=== PATIENT | female | born 1950 | race Caucasian/White ===

== ENCOUNTER 2019-07-21 14:52 | Emergency (ER) | payer OTHER ==
[~2019-07-21] VITALS: Ht 152.4 cm; Wt 56.7 kg
== END 2019-07-21 18:11 | disposition home or self-care (01) ==
LOC: ER 14:52
DX: S81.822A Laceration with foreign body, left lower leg, initial encounter (principal); W18.09XA Striking against other object with subsequent fall, initial encounter; Y93.89 Activity, other specified; Y92.832 Beach as the place of occurrence of the external cause; Y99.8 Other external cause status

== ENCOUNTER 2019-07-29 08:57 | Emergency (ER) | payer OTHER ==
[~2019-07-29] VITALS: Ht 152.4 cm; Wt 56.7 kg
== END 2019-07-29 10:40 | disposition home or self-care (01) ==
LOC: ER 08:57
DX: T81.89XA Other complications of procedures, not elsewhere classified, initial encounter (principal)

== ENCOUNTER 2019-08-04 09:04 | Emergency (ER) | payer OTHER ==
[~2019-08-04] VITALS: Ht 152.4 cm; Wt 59.0 kg
== END 2019-08-04 11:30 | disposition home or self-care (01) ==
LOC: ER 09:04
DX: Z48.02 Encounter for removal of sutures (principal)